=== PATIENT | male | born 1945 | race Caucasian/White ===

== ENCOUNTER 2021-12-24 22:38 | Emergency (ER) | payer OTHER, MEDICARE ==
[~2021-12-24] VITALS: Ht 172.7 cm; Wt 92.7 kg
[2021-12-25] MEDS ORDERED: celeCOXIB 100mg capsule PO SCH (01:30)
[2021-12-25] MEDS ORDERED: celeCOXIB 100mg capsule PO ONE (01:30)
[2021-12-25] MEDS ORDERED: cyclobenzaprine 10mg tablet PO ONE (01:30)
--- NOTE | 2021-12-25 01:47 | NUR ---
po med x2 given
[2021-12-25] MEDS ORDERED: CYCL-394 PO (02:36)
[2021-12-25] MEDS ORDERED: CELE-193 PO (03:01)
== END 2021-12-25 03:01 | disposition home or self-care (01) ==
LOC: ER 22:39
DX: S39.012A Strain of muscle, fascia and tendon of lower back, initial encounter (principal); I10 Essential (primary) hypertension; K21.9 Gastro-esophageal reflux disease without esophagitis; Z90.49 Acquired absence of other specified parts of digestive tract; X50.0XXA Overexertion from strenuous movement or load, initial encounter; Y93.89 Activity, other specified; Y92.89 Other specified places as the place of occurrence of the external cause; Y99.8 Other external cause status
CPT/HCPCS: 99283